=== PATIENT | male | born 1985 | race Two or more races ===

== ENCOUNTER 2023-03-02 09:08 | Emergency (ER) | payer OTHER ==
[~2023-03-02] VITALS: Ht 175.3 cm; Wt 105.2 kg
[2023-03-02] MEDS ORDERED: CEFTRIAXONE SODIUM 2 GM in D5W 5% 100 ML IV ONE (11:45)
[2023-03-02] MEDS ORDERED: DexAMETHasone SOD PHOS 10MG/1ML VIAL INJ IM ONE (11:45)
[2023-03-02] MEDS ORDERED: KETOROLAC TROMETH 60MG/2ML VIAL IM ONE (11:45)
[2023-03-02] MEDS ORDERED: CLINDAMYCIN 600MG IV 50 ML IV ONE (11:45)
[2023-03-02 12:34] LABS: Basophils # (auto) 0.1 10 ^3/uL (0-0.2); Basophils % (auto) 0.4 % (0.0-2.0); Eosinophils # (auto) 0.1 10 ^3/uL (0-0.8); Eosinophils % (auto) 0.8 % (0.0-7.0); Hematocrit 46.8 % (41.0-53.0); Hemoglobin 15.7 g/dL (13.5-17.5); Lymphocytes # (auto) 2.3 10 ^3/uL (0.4-5.4); Lymphocytes % (auto) 15.7 % (10.0-50.0); Mean Corpuscular Hemoglobin 29.5 pg (28.0-32.0); Mean Corpuscular Hgb Conc. 33.5 g/dL (32.0-36.0); Monocytes # (auto) 1.2 10 ^3/uL (0-1.3); Monocytes % (auto) 8.1 % (0.0-12.0); Neutrophils # (auto) 11.1 10 ^3/uL (1.6-8.6); Red Blood Cells 5.32 10^6/uL (4.5-5.90); Red Cell Distribution Width 14.6 % (11.8-14.3); White Blood Cell 14.8 10^3/uL (4.4-10.8)
[2023-03-02 12:54] LABS: Alanine Aminotransferase 23 U/L (7-40); Albumin 4.5 g/dL (3.2-4.8); Alkaline Phosphatase 101 U/L (46-116); Anion Gap 8 (5-15); Aspartate Aminotransferase 20 U/L (13-40); BUN/Creatinine Ratio 6.8 (10.0-20.0); Blood Urea Nitrogen 6 mg/dL (9-23); Calcium 9.2 mg/dL (8.7-10.4); Carbon Dioxide 27 mmol/L (20-30); Chloride 101 mmol/L (98-107); Glucose 100 mg/dL (74-106); Potassium 4.1 mmol/L (3.5-5.1); Sodium 136 mmol/L (136-145)
[2023-03-02 12:55] LABS: Bilirubin, Total 0.5 mg/dL (0.2-1.0); Total Protein 8.1 g/dL (5.7-8.2)
[2023-03-02] MEDS ORDERED: CEPH500C PO (14:00)
[2023-03-02] MEDS ORDERED: PRED20TA2 PO (14:00)
[2023-03-02] MEDS ORDERED: CIPR-173 PO (14:00)
[2023-03-02] MEDS ORDERED: NAPR-957 PO (14:00)
[2023-03-02 15:06] LABS: Lactic Acid w/Reflex 3.1 mmol/L (0.4-2.0)
[2023-03-02 15:36] VITALS: BP 111/67; PULSE 83; RESP 18; TEMP 98.2; O2SAT 98
== END 2023-03-02 15:46 | disposition home or self-care (01) ==
LOC: ER 09:08
DX: R22.31 Localized swelling, mass and lump, right upper limb (principal)
CPT/HCPCS: 36415; 73130; 80053; 83605; 85025; 96365; 96372; 99284; J0696; J1100; J1885; J3490; J7060

== ENCOUNTER 2023-09-26 19:20 | Emergency (ER) | payer OTHER ==
[~2023-09-26] VITALS: Ht 175.3 cm; Wt 108.3 kg
[~2023-09-26 19:20] MED LIST: CEPH500C PO; CIPR-173 PO; NAPR-957 PO; PRED20TA2 PO
[2023-09-26] MEDS: KETOROLAC TROMETH 30 MG/ML 1ML VIAL IM ONE (22:58)
[2023-09-26] MEDS ORDERED: AUG875T PO (23:14)
[2023-09-26] MEDS ORDERED: IBUP-1454 PO (23:14)
[2023-09-26 23:43] VITALS: BP 132/82; PULSE 78; RESP 18; TEMP 98.2; O2SAT 98
== END 2023-09-26 23:48 | disposition home or self-care (01) ==
LOC: ER 19:20
DX: S61.432A Puncture wound without foreign body of left hand, initial encounter (principal); S61.431A Puncture wound without foreign body of right hand, initial encounter; Z79.899 Other long term (current) drug therapy; W54.0XXA Bitten by dog, initial encounter; Y93.89 Activity, other specified; Y92.89 Other specified places as the place of occurrence of the external cause; Y99.8 Other external cause status
CPT/HCPCS: 73130; 96372; 99283; J1885